=== PATIENT | male | born 1990 | race Caucasian/White ===

== ENCOUNTER 2019-06-28 21:51 | Emergency (ER) | payer OTHER, BC ==
[~2019-06-28] VITALS: Ht 165.1 cm; Wt 62.6 kg
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
[2019-06-28] MEDS ORDERED: IBUPROFEN 600 MG TABLET PO ONE ×2 (22:29→22:30)
[2019-06-28] MEDS ORDERED: TDAP [DIPH/PERTUSSIS/TET] 0.5 ML VIAL IM ONE ×2 (22:30)
--- NOTE | 2019-06-28 22:39 | NUR ---
ALL ORDERED MEDS GIVEN TDAP SHOT ADMINISTERED ON LEFT DELTOID LOT#: [id number] DEVENDRA DATE: 09/23/20
--- NOTE | 2019-06-28 22:41 | NUR ---
XR BEING DONE AT BEDSIDE
--- NOTE | 2019-06-28 23:28 | NUR ---
Patient discharged to home in stable condition. Written and verbal after care instructions given. Patient verbalizes understanding of instruction. Pt left facility with at side. Pt's will be driving pt back home. No s/s of acute distress or sob noted. vs stable. pt left facility safely.
[2019-06-28 23:30] VITALS: BP 130/80
== END 2019-06-28 23:31 | disposition home or self-care (01) ==
LOC: ER 22:18
DX: S50.01XA Contusion of right elbow, initial encounter (principal); S30.810A Abrasion of lower back and pelvis, initial encounter; V23.4XXA Motorcycle driver injured in collision with car, pick-up truck or van in traffic accident, initial encounter; Y93.89 Activity, other specified; Y92.411 Interstate highway as the place of occurrence of the external cause; Y99.8 Other external cause status
CPT/HCPCS: 72170; 73080; 90471; 90715; 99283; A6253